=== PATIENT | female | born 1945 | race Caucasian/White ===

== ENCOUNTER 2017-10-27 08:55 | Day surgery (SDC) | payer BC, MEDICAID ==
[~2017-10-27] VITALS: Ht 160 cm; Wt 88.3 kg
[2017-10-27 09:20] VITALS: BP 131/91
[2017-10-27] MEDS ORDERED: OXYC-150 PO (09:34)
[2017-10-27] MEDS ORDERED: LISI-600 PO (09:34)
[2017-10-27] MEDS ORDERED: FENT-91 TP (09:34)
[2017-10-27] MEDS ORDERED: DIAZ5TAB4 PO (09:35)
[2017-10-27] MEDS ORDERED: diazepam 5mg tablet PO ONE (09:50)
[2017-10-27 10:30] VITALS: BP 157/76
[2017-10-27 10:45] VITALS: BP 157/76
== END 2017-10-27 11:25 | disposition home or self-care (01) ==
LOC: SSTAY O 08:55
PROVIDERS: ATTEND Radiology Diagnostic Radiology
DX: J90 Pleural effusion, not elsewhere classified (principal); I10 Essential (primary) hypertension; Z90.710 Acquired absence of both cervix and uterus; Z85.3 Personal history of malignant neoplasm of breast; Z90.49 Acquired absence of other specified parts of digestive tract; Z90.89 Acquired absence of other organs; Z72.89 Other problems related to lifestyle; Z87.891 Personal history of nicotine dependence; Z98.890 Other specified postprocedural states; Z79.899 Other long term (current) drug therapy
CPT/HCPCS: 32555; 71045